=== PATIENT | female | born 1960 | race African-American/Black ===

== ENCOUNTER 2018-06-04 10:38 | Emergency (ER) | payer OTHER | END 2018-06-04 11:32 | disposition home or self-care (01) | LOC: MADERS 10:38 | DX: S40.269A Insect bite (nonvenomous) of unspecified shoulder, initial encounter (principal); F17.210 Nicotine dependence, cigarettes, uncomplicated; W57.XXXA Bitten or stung by nonvenomous insect and other nonvenomous arthropods, initial encounter | CPT/HCPCS: 99282 ==